=== PATIENT | female | born 1975 | race Caucasian/White ===

== ENCOUNTER 2020-06-18 15:50 | Emergency (ER) | payer OTHER ==
[~2020-06-18] VITALS: Ht 160 cm; Wt 74.8 kg
[2020-06-18 16:05] VITALS: BP 126/79
--- NOTE | 2020-06-18 16:30 | NUR ---
45/F C/O LAC WOUND TO PLANTAR SURFACE OF RIGHT BIGHT TOE S/P STEPPED ON METAL X TODAY. VSS. MED HX: DENIES
--- NOTE | 2020-06-18 16:42 | NUR ---
APPLIED BANDAID TO RIGHT BIG TOE WITHOUT ANY ISSUES
--- NOTE | 2020-06-18 16:45 | NUR ---
Patient discharged with v/s stable. Written and verbal after care instructions given and explained. Patient alert, oriented and verbalized understanding of instructions. Ambulatory with steady gait. All questions addressed prior to discharge. ID band removed. Patient advised to follow up with PMD. Rx of BACITRACIN AND NAPROSYN given. Patient educated on indication of medication including possible reaction and side effects. Opportunity to ask questions provided and answered.
[2020-06-18 16:48] VITALS: BP 126/79
== END 2020-06-18 16:45 | disposition home or self-care (01) ==
LOC: MED 15:50
DX: S91.111A Laceration without foreign body of right great toe without damage to nail, initial encounter (principal); E11.9 Type 2 diabetes mellitus without complications; I10 Essential (primary) hypertension; Z98.890 Other specified postprocedural states; Z88.0 Allergy status to penicillin; X58.XXXA Exposure to other specified factors, initial encounter; Y93.89 Activity, other specified; Y92.89 Other specified places as the place of occurrence of the external cause; Y99.8 Other external cause status
CPT/HCPCS: 12001; 90471; 90715; 99283